=== PATIENT | male | born 1950 | race Caucasian/White ===

== ENCOUNTER 2024-08-24 09:08 | Emergency (ER) | payer MEDICARE, OTHER, SELFPAY ==
[2024-08-24 09:11] VITALS: BP 132/116; BMI 25.2
[2024-08-24 09:16] VITALS: BP 132/116
[2024-08-24 09:38] VITALS: BP 120/88
[2024-08-24 09:54] LABS: % Basophils 0.6 % (0-2); % Eosinophils 2.6 % (0-6); % Immature Granulocytes 0.3 % (0-0.5); % Lymphocytes 12.9 % (20.5-51.1); % Monocytes 7.1 % (1.7-9.3); % Neutrophils 76.5 % (42.2-75.2); Absolute Basophils 0.1 10^3/uL (0-0.2); Absolute Eosinophils 0.2 10^3/uL (0-0.7); Absolute Lymphocytes 1.1 10^3/uL (1.2-3.4); Absolute Monocytes 0.6 10^3/uL (0.1-0.6); Absolute Neutrophils 6.8 10^3/uL (1.4-6.5); Hematocrit 44.3 % (39.0-52.0); Hemoglobin 15.3 g/dL (13.0-18.0); Mean Corp Hgb Conc. 34.5 g/dL (33.0-37.0); Mean Corpuscular Volume 89.9 fL (80.0-94.0); Mean Platelet Volume 9.7 fL (7.4-10.4); Nucleated Red Blood Cells % 0 % (-); Platelet Count 179 10^3/uL (130-400); Red Blood Cell Count 4.93 10^6/uL (4.70-6.10); Red Cell Dist. Width 11.7 % (11.5-14.5); White Blood Cell Count 8.8 10^3/uL (4.8-10.8)
--- NOTE | 2024-08-24 09:59 | ED.GENMED ---
History of Present Illness
General
Chief Complaint: Dizziness
Source: patient and spouse
Exam Limitations: none
Time Seen by Provider: 08/24/24 09:30
Nursing documentation reviewed up to this point in time: agreed with except (Patient's blood pressure was not elevated cuff was on incorrectly)
History of Present Illness
History of Present Illness:
74-year-old male, had some dental work earlier this week temporary crown placed left upper molar using some Motrin no antibiotics swallowing some bad tasting saliva thought he could have an infection, last night had a bottle of wine, today woke up
dizzy room spinning, had a headache yesterday no fevers did have nausea symptoms are worse when he sits forward and moving his head no arm or leg weakness no facial swelling
Past History
Past History
ED Past Medical History: Other (Dental work)
Social History
Tobacco: Non-smoker
Alcohol: Occasional
Drug: None
Personal:
Living: with family
Employment: Employed
Review of Systems
Review of Systems
All Other Systems: Not applicable
Constitutional: Denies fever or fatigue
EENT: Reports other (Mild dental pain bed tasting saliva)
Respiratory: Reports no symptoms
Cardiac: Reports no symptoms
ABD/GI: Reports nausea
: Reports no symptoms
Musculoskeletal: Reports no symptoms
Neurological: Reports dizzy and headache
Endocrine: Reports no symptoms
Phy Exam
Physical Exam
Physical Exam:
Physical Exam
General: no apparent distress, not acutely ill
Neck: Posterior pharynx is slightly red without exudates temporary crown in the left posterior molar
Heart: s1/s2 regular rate and rhythm, no murmur. equal radial pulses.
Lungs: no acute respiratory distress. clear bilaterally
Abdomen: Nontender
Neuro: alert and oriented. no focal neurological deficits normal [id number] bilaterally, 2 beats of horizontal nystagmus to the right no vertigo or dizziness with head rotation bilaterally
Skin: no rash
Psychiatric: well kept. interactive and cooperative
Extremities: no edema.
Scores
[id number] Score for Afib Stroke Risk
Age in Years (65=0, 65-74=1, >/=75=2): 65-74
Sex (Female=+1): Male
Congestive Heart Failure History (Yes=+1): No
Hypertension History (Yes=+1): No
Stroke/TIA/Thromboembolism History (Yes=+2): No
Vascular Disease History (Yes=+1): No
Diabetes Mellitus (Yes=+1): No
Score: 1
Anticoagulation Recommendations: Consider anticoagulation (as validated in nonvalvular fib)
Course
Orders/Labs/Results
Orders:
Orders
08/24/24 09:27
Electrocardiogram (*1) Urgent
Reason for Study: Vertigo / Dizzy
EKG- Treatment ONCE
08/24/24 09:35
Complete Blood Count/With Diff Urgent
Comprehensive Metabolic Panel Urgent
Troponin I Urgent
08/24/24 09:40
Dexamethasone Sod Phosphate [Decadron] 10 mg IV NOW STA
HydrALAZINE [Apresoline] 10 mg IV NOW STA
Ondansetron Injectable [Zofran] 4 mg IV NOW STA
08/24/24 10:37
Electrocardiogram (*1) Urgent
Reason for Study: Palpitations
EKG- Treatment ONCE
08/24/24 10:53
CT Head W/o Iv Contrast Urgent
Comment:
Reason For Exam: vertigo headache
08/24/24 11:53
Penicillin V Potassium [Pen Vk] 250 mg PO NOW STA
Abnormal Lab Results
08/24/24
09:35
Absolute Neuts (auto) 6.8 H 10^3/uL
(1.4-6.5)
Absolute Lymphs (auto) 1.1 L 10^3/uL
(1.2-3.4)
Neutrophils % 76.5 H %
(42.2-75.2)
Lymphocytes % 12.9 L %
(20.5-51.1)
Glucose 120 H mg/dl
(70-99)
Total Bilirubin 1.5 H mg/dl
(0.2-1.3)
08/24/24 09:35
08/24/24 09:35
Vital Signs
Initial and Last Documented VS:
Initial Vital Signs
Temp Pulse Resp BP Pulse Ox
97.9 F 102 16 132/116 100
08/24/24 09:11 08/24/24 09:11 08/24/24 09:11 08/24/24 09:11 08/24/24 09:11
Last Documented Vital Signs
Temp Pulse Resp BP Pulse Ox
97.9 F 80 11 130/81 98
08/24/24 09:11 08/24/24 11:21 08/24/24 11:21 08/24/24 11:20 08/24/24 11:21
MDM/Problems Addressed
Differential Diagnosis Includes:
Benign positional vertigo, electrolyte abnormality symptoms related to dental infection arrhythmia, blood pressure normalized with repeat measurement suspect spurious incorrect original measurement
MDM/Problems Addressed:
Dizziness nausea recent dental infection
*Radiology
Radiology exam reviewed: radiology read reviewed
*Pulse Oximetry
Patient hypoxic: no
*EKG
Interpreted by ED Provider?: Yes
Interpretation: normal
Comparison EKG: no comparison EKG present
Heart Rate: 78
Rate: normal
Rhythm: sinus
Ischemia: no ischemia
*Jig Fitter Interpretation
Rate: normal
Interpretation: normal
Heart Rate: 78
Rhythm: sinus
*Critical Care Note
Total Time (30-74mins, 75-104mins- exclusive of procedures): Not Applicable
Update Note
Update Note:
Update, labs are noted EKG initially noted repeat noted did have some wine last evening perhaps transiently had paroxysmal A-fib,
12 noon patient feeling well now normal sinus rhythm looks like he was transiently in A-fib, did have alcohol last night [id number] noted will try to get him outpatient cardiology follow-up encouraged to abstain from alcohol
ED Attending Note
-
Portions of this chart may have been created with voice recognition software.� Occasional wrong word or��sound alike� substitutions may have occurred due to the inherent limitations of voice recognition software.
Discharge Plan
Departure
Patient Disposition: Home (Routine Discharge)
Date of Disposition: 08/24/24
Time of Disposition: 11:55
Patient with high blood pressure during this ER visit?: No
Condition: Good
Discharge Problem:
Dizziness, Atrial fibrillation, currently in sinus rhythm
Instructions: Atrial fibrillation - Discharge instructions, Atrial fibrillation and atrial flutter - ED discharge instructions, Dizziness
Prescriptions:
New
penicillin V potassium 250 mg tablet
250 mg PO Q8H Qty: 20 0RF
No Action
atorvastatin [Lipitor] 10 mg Tablet
10 mg PO HS
Referrals:
Martine Barros CRNP [Family Provider] -
Omar Rhodes, DO [Active] - Next open appointment
Activity Restrictions/Additional Instructions:
Drink plenty of fluids, follow-up with cardiology and your dentist return to the ER for worsening symptoms
Interventions
Interventions:
*Risk Screen - Suicide Last Done: 08/24/24 09:28
*General Assessment Last Done: 08/24/24 09:11
*Neglect/Abuse Screening Last Done: 08/24/24 09:28
ED- Fall Risk Assessment Last Done: 08/24/24 09:28
*ED COVID-19 Vaccine History Last Done: 08/24/24 09:28
ED- Neurological Assessment Last Done: 08/24/24 09:11
ED- Cardiac Assessment Last Done: 08/24/24 09:11
ED Swallowing Screen Last Done: 08/24/24 09:28
Discharge Date and Time
Print Language: AUSTRIAN
[2024-08-24 10:02] LABS: ALT (SGPT) 20 U/L (0-50); AST (SGOT) 22 U/L (17-59); Albumin 4.5 g/dl (3.5-5.0); Alkaline Phosphatase 71 U/L (38-126); Blood Urea Nitrogen 11 mg/dl (9-20); Carbon Dioxide 30 mmol/L (22-30); Chloride 102 mmol/L (98-107); Estimated Creatinine Clearance 97 ml/min; Glucose 120 mg/dl (70-99); Potassium 4.4 mmol/L (3.5-5.1); Sodium 139 mmol/L (135-145); Total Bilirubin 1.5 mg/dl (0.2-1.3); Total Protein 6.6 g/dl (6.3-8.2); eGFR > 60.00
[2024-08-24] MEDS: DECADRON 10 MG IV (10:09)
[2024-08-24] MEDS: ZOFRAN 4 MG IV (10:09)
[2024-08-24 10:13] LABS: Troponin I < 0.012 ng/ml
[2024-08-24 11:20] VITALS: BP 130/81
[2024-08-24 12:00] VITALS: BP 128/79
[2024-08-24] MEDS: PEN VK 250 MG PO (12:02)
== END 2024-08-24 12:05 | disposition home or self-care (01) ==
LOC: EMR 09:08
PROVIDERS: EMERGENCY PHYSICIAN Emergency Medicine; FAMILY PHYSICIAN Nurse Practitioner
DX: R42 Dizziness and giddiness (principal); I48.91 Unspecified atrial fibrillation; R11.0 Nausea; R51.9 Headache, unspecified; K08.89 Other specified disorders of teeth and supporting structures; E78.5 Hyperlipidemia, unspecified; Z87.891 Personal history of nicotine dependence
CPT/HCPCS: 99285; 96374; 96375; 70450; 80053; 84484; 85025; 93005

== ENCOUNTER → 2024-09-24 09:11 | Outpatient (REF) | payer MEDICARE, OTHER, SELFPAY | LOC: HWRCS 09:11 | PROVIDERS: ATTENDING PHYSICIAN Internal Medicine Cardiovascular Disease; FAMILY PHYSICIAN Nurse Practitioner | DX: I48.91 Unspecified atrial fibrillation (principal) | CPT/HCPCS: 93306 ==

== ENCOUNTER → 2024-12-17 08:43 | Outpatient (REF) | payer MEDICARE, OTHER, SELFPAY | LOC: MRI 08:43 | PROVIDERS: ATTENDING PHYSICIAN Physician Assistant | DX: H90.A21 Sensorineural hearing loss, unilateral, right ear, with restricted hearing on the contralateral side (principal) | CPT/HCPCS: 70553; A9575 ==